=== PATIENT | male | born 1930 | race African-American/Black ===

== ENCOUNTER 2016-07-09 10:04 | Outpatient (CLI) | payer BC, MEDICARE ==
[2016-07-09] MEDS ORDERED: NACL ONE (11:04)
--- NOTE | 2016-07-09 13:07 | Cat Scan Report ---
CT chest IV contrast: History: Pericardial effusion. Findings: Circumscribed hypodensities and right and left lobe of thyroid gland suggestive of probably cysts. No endobronchial or mediastinal mass. No mediastinal, hilar or axillary adenopathy. There is maximum 4.5 cm thickness pericardial effusion noted at the base of the pericardium. No pleural effusion. Normal lung parenchyma. No discrete nodularity or consolidation. Impression: Hypodensities right and left little finger probably cyst. Sonographic correlation advised. Moderate pericardial effusion predominantly located at the base of the pericardium.
== END 2016-07-09 10:05 | disposition home or self-care (01) ==
LOC: CT 10:04
PROVIDERS: ATTEND Internal Medicine Cardiovascular Disease
DX: I31.3 Pericardial effusion (noninflammatory) (principal)
CPT/HCPCS: 36415; 71260; 82565; 84520; Q9967

== ENCOUNTER 2017-03-21 11:36 | Outpatient (CLI) | payer BC ==
--- NOTE | 2017-03-21 13:44 | XRay Report ---
Lumbar spine series: Chronic low back pain. 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 There is moderate compression of the mid and anterior L2 body with mild anterior compression of L1. 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 There is also calcification at the L4-5 interspace with mild generalized compression of the L5 body. There is diffuse calcification of the interspinous posterior ligament. The apophyseal joints are difficult to fully assess but appear to be relatively intact. The bones appear generally decreased in overall mineralization. Impressions: Diffuse lumbar abnormalities as detailed above. The findings all appear chronic.
== END 2017-03-21 11:37 | disposition home or self-care (01) ==
LOC: XRAY 11:36
PROVIDERS: ATTEND Family Medicine
DX: M47.895 Other spondylosis, thoracolumbar region (principal); M53.86 Other specified dorsopathies, lumbar region
CPT/HCPCS: 72110

== ENCOUNTER 2017-11-08 14:29 | Outpatient (CLI) | payer MEDICARE ==
--- NOTE | 2017-11-08 14:53 | XRay Report ---
CHEST XRAY, 2 VIEWS: History: Cough. Findings: There is mild diffuse interstitial coarsening. The lungs are hyperexpanded but clear. No infiltrate, pleural fluid or pneumothorax is detected. The cardiac silhouette and pulmonary vasculature are within normal limits for technique. The bony thorax is unremarkable. IMPRESSION: Changes consistent with COPD. No acute cardiopulmonary process.
== END 2017-11-08 14:30 | disposition home or self-care (01) ==
LOC: XRAY 14:29
PROVIDERS: ATTEND Family Medicine
DX: R05 Cough (principal); I12.9 Hypertensive chronic kidney disease with stage 1 through stage 4 chronic kidney disease, or unspecified chronic kidney disease; N18.3 Chronic kidney disease, stage 3 (moderate); Z90.49 Acquired absence of other specified parts of digestive tract
CPT/HCPCS: 71046